=== PATIENT | female | born 1940 | race Caucasian/White ===

== ENCOUNTER 2021-10-01 16:29 | Inpatient (IN) | payer MEDICARE ==
[~2021-10-01] VITALS: Ht 165.1 cm; Wt 67.6 kg
[2021-10-01 16:55] VITALS: BP 147/78
[2021-10-01 17:45] LABS: BASO % 0.6 % (0.0-1.0); EOS # 0.2 10*3/uL (0.0-0.4); EOS % 3.6 % (1.0-4.0); HEMATOCRIT 34.8 % (37.0-47.0); LYMPH # 1.4 10*3/uL (1.3-4.4); LYMPH % 21.3 % (27.0-41.0); MEAN CELL VOLUME 85.3 fl (81.0-99.0); MEAN CORPUSCULAR HGB 26.5 pg (27.0-31.0); MEAN PLATELET VOLUME 10.7 fl (9.6-12.3); MONO # 0.7 10*3/uL (0.1-1.0); NEUT # 4.2 10*3/uL (2.3-7.9); PLATELET COUNT AUTOMATED 232 10*3/uL (130-400); RED BLOOD COUNT 4.08 10*6/uL (4.10-5.10); RED CELL DISTRI WIDTH 15.7 % (0-14.5); WHITE BLOOD COUNT 6.6 10*3/uL (4.8-10.8)
[2021-10-01 18:10] LABS: CREATININE 1.08 mg/dL (0.55-1.02); POTASSIUM 4.4 mmol/L (3.5-5.1); TOTAL PROTEIN 7.1 gm/dL (6.4-8.2)
[2021-10-01 18:36] LABS: BILIRUBIN Negative (Negative); BLOOD Negative (Negative); CLARITY Cloudy (Clear); COLOR Yellow (Yellow); GLUCOSE Negative (Negative); KETONE Negative (Negative); LEUKO ESTERASE 2+ (Negative); NITRITE Positive (Negative); SPECIFIC GRAVITY 1.025 (1.001-1.030)
[2021-10-01 18:47] LABS: BACTERIA 3+; WBC 41-50 wbc/hpf (0-5)
[2021-10-01] MEDS ORDERED: ARTIFICIAL TEAR1514 OU (21:51)
[2021-10-01] MEDS ORDERED: QUALITY CHOICE81 M1 PO (21:53)
[2021-10-01] MEDS ORDERED: LIPITOR40 MG PO (21:54)
[2021-10-01] MEDS ORDERED: BISACODYL10 MG R (21:57)
[2021-10-01] MEDS ORDERED: DOK100 M1 PO (21:58)
[2021-10-01] MEDS ORDERED: NEURONTIN100 MG PO (21:59)
[2021-10-01] MEDS ORDERED: LOSARTAN POTASS50 M1 PO (21:59)
[2021-10-01] MEDS ORDERED: METOPROLOL SUCC25 M2 PO (22:01)
[2021-10-01] MEDS ORDERED: NAMENDA10 MG PO (22:04)
[2021-10-01] MEDS ORDERED: MIRALAX17 GM PO (22:04)
[2021-10-01] MEDS ORDERED: NAPROXEN500 M1 PO (22:05)
[2021-10-01] MEDS ORDERED: OMEPRAZOLE20 M3 PO (22:06)
[2021-10-01] MEDS ORDERED: ZOFRAN4 MG PO (22:08)
[2021-10-01 22:10] VITALS: BP 136/72
[2021-10-01] MEDS ORDERED: RIVASTIGMINE T1.5 M1 PO (22:14)
[2021-10-01] MEDS ORDERED: SYNTHROID25 MCG PO (22:14)
[2021-10-01] MEDS ORDERED: TUMS200 MG PO (22:16)
[2021-10-02 06:50] LABS: THYROID STIM HORMONE (HS) 3.51 uIU/ml (0.358-4.75)
[2021-10-02 07:21] VITALS: BP 122/63
[2021-10-02 08:00] VITALS: BP 122/63
[2021-10-02 19:17] VITALS: BP 102/57
[2021-10-03 07:18] VITALS: BP 139/74
[2021-10-03 20:00] VITALS: BP 91/50
[2021-10-04 07:00] VITALS: BP 117/61
[2021-10-04 20:00] VITALS: BP 92/67
[2021-10-05 07:26] VITALS: BP 123/57
[2021-10-05 20:00] VITALS: BP 114/60
[2021-10-06 07:50] VITALS: BP 123/68
[2021-10-06 20:00] VITALS: BP 137/61
[2021-10-07 07:29] VITALS: BP 134/71
[2021-10-07 20:00] VITALS: BP 104/92
[2021-10-08 07:25] VITALS: BP 120/70
[2021-10-08] MEDS ORDERED: CEFDINIR300 MG PO (12:04)
[2021-10-08 20:00] VITALS: BP 105/67
[2021-10-09 07:24] VITALS: BP 123/66
[2021-10-09] MEDS ORDERED: MIRTAZAPINE15 M2 PO (09:18)
[2021-10-09] MEDS ORDERED: MEMANTINE HCL10 MG PO (09:18)
[2021-10-09] MEDS ORDERED: B121000 MCG/1 IM (09:18)
[2021-10-09] MEDS ORDERED: RIVASTIGMINE TAR3 M1 PO (09:18)
== END 2021-10-09 13:25 | DRG 885 ==
LOC: ED 16:29 → 3N 20:18
PROVIDERS: Physician Assistant; ADMIT Psychiatry & Neurology Psychiatry; ATTEND Psychiatry & Neurology Psychiatry
DX: F33.2 Major depressive disorder, recurrent severe without psychotic features (principal); F01.50 Vascular dementia, unspecified severity, without behavioral disturbance, psychotic disturbance, mood disturbance, and anxiety; N17.0 Acute kidney failure with tubular necrosis; N39.0 Urinary tract infection, site not specified; G30.9 Alzheimer's disease, unspecified; K21.00 Gastro-esophageal reflux disease with esophagitis, without bleeding; K44.9 Diaphragmatic hernia without obstruction or gangrene; F41.9 Anxiety disorder, unspecified; K21.9 Gastro-esophageal reflux disease without esophagitis; E78.5 Hyperlipidemia, unspecified; F02.80 Dementia in other diseases classified elsewhere, unspecified severity, without behavioral disturbance, psychotic disturbance, mood disturbance, and anxiety; E03.9 Hypothyroidism, unspecified; Z20.822 Contact with and (suspected) exposure to COVID-19; Z66 Do not resuscitate; I10 Essential (primary) hypertension; Z88.8 Allergy status to other drugs, medicaments and biological substances; Z88.6 Allergy status to analgesic agent; Z86.73 Personal history of transient ischemic attack (TIA), and cerebral infarction without residual deficits